=== PATIENT | female | born 1960 | race African-American/Black ===

== ENCOUNTER 2019-06-15 19:44 | Inpatient (IN) ==
[2019-06-15] MEDS ORDERED: hydrALAZINE 20 MG/1 ML VIAL IV STA (20:10)
[2019-06-15] MEDS ORDERED: SODIUM CHLORIDE 0.9% 1,000 ML IV STA (20:16)
[2019-06-15 20:39] LABS: CKMB % 2.8 %
[2019-06-15] MEDS ORDERED: ENOXAPARIN 30 MG/0.3 ML SYRINGE SUBCUT STA (20:59)
[2019-06-15] MEDS ORDERED: ENOXAPARIN 100 MG/ML SYRINGE SUBCUT ONE (21:34)
[2019-06-15] MEDS ORDERED: ONDANSETRON 4 MG/2 ML VIAL IV PRN (21:58)
[2019-06-15] MEDS ORDERED: ACETAMINOPHEN 325 MG TABLET PO PRN (21:58)
[2019-06-15] MEDS ORDERED: ENOXAPARIN 40 MG/0.4 ML SYRINGE SUBCUT SCH (22:00)
[2019-06-15 22:38] LABS: Alanine Aminotransferase 166 U/L (13-56); Albumin 3.4 G/DL (3.4-5.0); Alkaline Phosphatase 55 U/L (45-117); Aspartate Amino Transferase 140 U/L (0-37); Bilirubin,Direct < 0.100 MG/DL (0.0-0.20); Bilirubin,Indirect 0.3 MG/DL (0.0-1.0)
[2019-06-15] MEDS: SODIUM CHLORIDE 0.9% 1,000 ML IV SCH (23:45)
[2019-06-16 02:19] LABS: Basophils % 0.4 % (0.0-0.8); Eosinophils # 0.4 10*3/uL (0.0-0.87); Eosinophils % 6.1 % (0.00-10.9); Hematocrit 31.8 VOL% (35.7-47.0); Hemoglobin 10.2 GM/DL (12.0-16.0); Immature Granulocytes % 0.8 %; Immature Granulocytes Absolute 0.06 #; Lymphocytes # 1.5 10*3/uL (1.4-4.0); Lymphocytes % 20.9 % (21.3-54.2); Mean Corpuscular HGB Conc 32.1 GM/DL (32-36); Mean Corpuscular Volume 87.8 FL (87-102); Mean Platelet Volume 10.4 FL (9.6-12.0); Monocytes % 6.5 % (1.7-12.7); Neutrophils % 65.3 % (38.7-73.9); Platelet Count 359 T/CUMM (130-400); Red Blood Count 3.62 MC/CUMM (3.8-5.5); Red Cell Distribution Width 13.5 % (9.3-17.3); White Blood Count 7.2 T/CUMM (4-12)
[2019-06-16 02:45] LABS: Albumin 2.9 G/DL (3.4-5.0); Bilirubin,Total 0.5 MG/DL (0.2-1.0); Calcium 9.3 MG/DL (8.5-10.1); Osmolality,Calculated 292.8 MOS/KG (273-304); Total Protein 6.6 G/DL (6.4-8.3)
[2019-06-16 03:02] LABS: CKMB % 3.1 %
[2019-06-16] MEDS: POTASSIUM CHLORIDE 20 MEQ TABLET PO PRN ×3 (04:26→09:30)
[2019-06-16] MEDS: SODIUM CHLORIDE 0.9% 1,000 ML IV SCH ×4 (08:12→22:37)
[2019-06-16] MEDS: MULTIVITAMIN (CENTRUM) TABLET PO SCH (09:30)
[2019-06-16] MEDS: PANTOPRAZOLE 40 MG TABLET PO SCH (09:30)
[2019-06-16] MEDS: ASPIRIN EC 81 MG TABLET PO SCH (09:30)
[2019-06-16] MEDS: ENOXAPARIN 40 MG/0.4 ML SYRINGE SUBCUT SCH (09:30)
[2019-06-16 10:37] LABS: Risk Ratio 3.63; VLDL CHOLESTEROL 55.6 MG/DL
[2019-06-16 13:21] LABS: CKMB % 3.1 %; Troponin I 0.043 NG/ML (0.00-0.045)
[2019-06-16 14:58] LABS: Apearance,Urine Slightly Hazy (Clear); Bacteria,Urine Occasional /HPF (Few); Bilirubin,Urine Negative (Negative); Blood, Urine Negative (Negative); Glucose,Urine (UA) Negative (Negative); Hyaline Casts,Urine 1 /LPF (0-3); Ketones,Urine Negative (Negative); Mucus,Urine Occasional /LPF (Occasional); Nitrite,Urine Negative (Negative); Protein,Urine Negative; RBC,Urine 13 /HPF (0-4); Squamous Epithelial Cell,Urine Occasional /HPF (0-10); Urine Color Yellow (Yellow); Urine Specific Gravity 1.015 (1.001-1.035); Urine Urobilinogen < 2.0 EU/DL (0.2-1.0); WBC,Urine 23 /HPF (0-6)
[2019-06-16 15:01] LABS: Barbiturates Screen,Urine Negative (Negative); Benzodiazepines Screen,Urine Negative (Negative); Cannabinoid Screen,Urine Negative (Negative); Opiate Screen,Urine Negative (Negative); Phencyclidine Screen,Urine Negative (Negative)
[2019-06-16 15:21] LABS: Troponin I 0.043 NG/ML (0.00-0.045)
[2019-06-16 18:24] LABS: CKMB % 3.3 %; Troponin I 0.042 NG/ML (0.00-0.045)
[2019-06-16 21:29] LABS: CKMB % 3.2 %; Troponin I 0.039 NG/ML (0.00-0.045)
[2019-06-17] MEDS: SODIUM CHLORIDE 0.9% 1,000 ML IV SCH ×5 (01:19→23:50)
[2019-06-17 01:33] LABS: CKMB % 3.2 %; Troponin I 0.04 NG/ML (0.00-0.045)
[2019-06-17] MEDS: ENOXAPARIN 40 MG/0.4 ML SYRINGE SUBCUT SCH (09:36)
[2019-06-17] MEDS: MULTIVITAMIN (CENTRUM) TABLET PO SCH (09:36)
[2019-06-17] MEDS: PANTOPRAZOLE 40 MG TABLET PO SCH (09:36)
[2019-06-17] MEDS: ASPIRIN EC 81 MG TABLET PO SCH (09:36)
[2019-06-18] MEDS: SODIUM CHLORIDE 0.9% 1,000 ML IV SCH ×4 (02:47→14:05)
[2019-06-18 05:25] LABS: Basophils % 0.6 % (0.0-0.8); Eosinophils # 0.8 10*3/uL (0.0-0.87); Eosinophils % 11.5 % (0.00-10.9); Hematocrit 32.8 VOL% (35.7-47.0); Hemoglobin 10.1 GM/DL (12.0-16.0); Immature Granulocytes % 0.7 %; Immature Granulocytes Absolute 0.05 #; Lymphocytes # 1.1 10*3/uL (1.4-4.0); Lymphocytes % 16.4 % (21.3-54.2); Mean Corpuscular HGB Conc 30.8 GM/DL (32-36); Mean Corpuscular Volume 91.1 FL (87-102); Mean Platelet Volume 10.7 FL (9.6-12.0); Monocytes % 6.5 % (1.7-12.7); Neutrophils % 64.3 % (38.7-73.9); Platelet Count 350 T/CUMM (130-400); Red Cell Distribution Width 13.5 % (9.3-17.3); White Blood Count 6.8 T/CUMM (4-12)
[2019-06-18 05:46] LABS: Calcium 8.6 MG/DL (8.5-10.1); Osmolality,Calculated 287.7 MOS/KG (273-304)
[2019-06-18 05:50] LABS: Eosinophils 13 % (0-10); Lymphocytes 11 % (20-55); Platelet Estimate Adequate; Segmented Neutrophils 68 % (50-85); Total Cells Counted 100
[2019-06-18 05:51] LABS: Hypochromasia 1+; Ovalocytes Slight
[2019-06-18] MEDS: PANTOPRAZOLE 40 MG TABLET PO SCH (08:56)
[2019-06-18] MEDS: MULTIVITAMIN (CENTRUM) TABLET PO SCH (08:57)
[2019-06-18] MEDS: ENOXAPARIN 40 MG/0.4 ML SYRINGE SUBCUT SCH (08:57)
[2019-06-18] MEDS: ASPIRIN EC 81 MG TABLET PO SCH (08:57)
[2019-06-18 11:40] VITALS: BP 184/89
[2019-06-18 11:49] LABS: CKMB % 4.8 %; Troponin I 0.043 NG/ML (0.00-0.045)
== END 2019-06-18 16:18 | disposition home health service (06) | DRG 281 ==
LOC: N.EDINP 19:44 → N.ED 19:44 → N.TELEN 22:51
PROVIDERS: ADMIT Internal Medicine; ATTEND Internal Medicine

== ENCOUNTER 2019-07-09 06:58 | Observation (INO) ==
[2019-07-09] MEDS ORDERED: ONDANSETRON 4 MG/2 ML VIAL IV STA (07:19)
[2019-07-09 07:24] LABS: Basophils % 0.3 % (0.0-0.8); Eosinophils # 0.9 10*3/uL (0.0-0.87); Eosinophils % 10.2 % (0.00-10.9); Hematocrit 34.2 VOL% (35.7-47.0); Hemoglobin 10.8 GM/DL (12.0-16.0); Immature Granulocytes % 0.7 %; Immature Granulocytes Absolute 0.06 #; Lymphocytes % 11.1 % (21.3-54.2); Mean Corpuscular HGB Conc 31.6 GM/DL (32-36); Mean Corpuscular Volume 87.9 FL (87-102); Mean Platelet Volume 10.2 FL (9.6-12.0); Monocytes % 4.5 % (1.7-12.7); Neutrophils % 73.2 % (38.7-73.9); Platelet Count 470 T/CUMM (130-400); Red Blood Count 3.89 MC/CUMM (3.8-5.5); Red Cell Distribution Width 13.8 % (9.3-17.3); White Blood Count 9.1 T/CUMM (4-12)
[2019-07-09 07:38] LABS: Albumin 3.2 G/DL (3.4-5.0); Bilirubin,Total 0.5 MG/DL (0.2-1.0); Calcium 9.5 MG/DL (8.5-10.1); Total Protein 7.5 G/DL (6.4-8.3)
[2019-07-09 08:24] LABS: Apearance,Urine Clear (Clear); Bilirubin,Urine Negative (Negative); Blood, Urine NEGATIVE (Negative); Glucose,Urine (UA) Negative (Negative); Ketones,Urine Negative (Negative); Mucus,Urine Occasional /LPF (Occasional); Nitrite,Urine Negative (Negative); Protein,Urine Negative; RBC,Urine 1 /HPF (0-4); Squamous Epithelial Cell,Urine Few /HPF (0-10); Urine Color Yellow (Yellow); Urine Specific Gravity 1.005 (1.001-1.035); WBC,Urine 7 /HPF (0-6)
[2019-07-09 08:25] LABS: Urine Urobilinogen 0.2 EU/DL (0.2-1.0)
[2019-07-09] MEDS ORDERED: LEVOFLOXACIN INJ 500 MG in PREMIX 1 EACH IV STA (09:22)
[2019-07-09] MEDS ORDERED: ACETAMINOPHEN 325 MG TABLET PO PRN (10:18)
[2019-07-09] MEDS ORDERED: LORATADINE 10 MG TABLET PO PRN (11:02)
[2019-07-09] MEDS: ALBUTEROL 2.5 MG/3 ML NEB RESP TX SCH ×2 (11:59→18:52)
[2019-07-09] MEDS ORDERED: cefTRIAXone 1,000 MG in SYRINGE 1 EACH IV SCH (13:00)
[2019-07-09] MEDS ORDERED: LISINOPRIL/HCTZ 20-12.5 MG TABLET PO SCH (14:00)
[2019-07-09] MEDS ORDERED: AZITHROMYCIN INJ 500 MG in SODIUM CHLORIDE 0.9% 250 ML IV SCH (15:00)
[2019-07-09] MEDS: guaiFENesin/DM ER 600-30 MG TABLET PO SCH (20:58)
[2019-07-09] MEDS: amLODIPine 10 MG TABLET PO SCH (20:58)
[2019-07-09] MEDS ORDERED: ATORVASTATIN 20 MG TABLET PO SCH (21:00)
[2019-07-10] MEDS: ALBUTEROL 2.5 MG/3 ML NEB RESP TX SCH ×2 (00:19→07:00)
[2019-07-10 03:59] LABS: Basophils % 0.3 % (0.0-0.8); Eosinophils % 10.4 % (0.00-10.9); Hematocrit 31.3 VOL% (35.7-47.0); Hemoglobin 9.7 GM/DL (12.0-16.0); Immature Granulocytes Absolute 0.09 #; Lymphocytes # 1.2 10*3/uL (1.4-4.0); Lymphocytes % 12.8 % (21.3-54.2); Mean Corpuscular Volume 90.2 FL (87-102); Mean Platelet Volume 10.3 FL (9.6-12.0); Monocytes % 5.1 % (1.7-12.7); Neutrophils % 70.4 % (38.7-73.9); Platelet Count 414 T/CUMM (130-400); Red Blood Count 3.47 MC/CUMM (3.8-5.5); Red Cell Distribution Width 13.9 % (9.3-17.3); White Blood Count 9.1 T/CUMM (4-12)
[2019-07-10 04:09] LABS: Calcium 9.6 MG/DL (8.5-10.1); Osmolality,Calculated 278.7 MOS/KG (273-304)
[2019-07-10 08:45] VITALS: BP 120/58
[2019-07-10] MEDS ORDERED: MULTIVITAMIN (CENTRUM) TABLET PO SCH (09:00)
[2019-07-10] MEDS ORDERED: ASPIRIN EC 81 MG TABLET PO SCH (09:00)
[2019-07-10] MEDS ORDERED: FUROSEMIDE 40 MG TABLET PO SCH (09:00)
[2019-07-10] MEDS: guaiFENesin/DM ER 600-30 MG TABLET PO SCH (09:53)
[2019-07-10] MEDS: amLODIPine 10 MG TABLET PO SCH (09:53)
[2019-07-10] MEDS ORDERED: LEVOFLOXACIN INJ 750 MG in PREMIX 1 EACH IV SCH (10:30)
== END 2019-07-10 12:50 | disposition home or self-care (01) ==
LOC: EDUNIT# → EDBD → N.ED 06:58 → N.EDINP 06:58 → N.2W 11:51
PROVIDERS: ADMIT Internal Medicine Geriatric Medicine; ATTEND Internal Medicine Geriatric Medicine

== ENCOUNTER 2019-07-13 23:45 | Inpatient (IN) ==
[2019-07-13] MEDS ORDERED: ALBUTEROL/IPRATROPIUM 3 ML NEB RESP TX STA (23:58)
[2019-07-14] MEDS ORDERED: SODIUM CHLORIDE 0.9% 500 ML IV STA (00:01)
[2019-07-14 00:12] LABS: Basophils # 0.1 10*3/uL (0.0-0.2); Basophils % 0.5 % (0.0-0.8); Eosinophils % 10.5 % (0.00-10.9); Hematocrit 33.6 VOL% (35.7-47.0); Hemoglobin 10.6 GM/DL (12.0-16.0); Immature Granulocytes % 0.7 %; Immature Granulocytes Absolute 0.07 #; Lymphocytes # 1.2 10*3/uL (1.4-4.0); Lymphocytes % 12.9 % (21.3-54.2); Mean Corpuscular HGB Conc 31.5 GM/DL (32-36); Mean Corpuscular Volume 88.2 FL (87-102); Monocytes % 5.5 % (1.7-12.7); Neutrophils % 69.9 % (38.7-73.9); Platelet Count 460 T/CUMM (130-400); Red Blood Count 3.81 MC/CUMM (3.8-5.5); White Blood Count 9.4 T/CUMM (4-12)
[2019-07-14 00:20] LABS: INR 0.9; PT Patient Result 10.1 SECS (9.6-12.2)
[2019-07-14 00:47] LABS: Albumin 3.1 G/DL (3.4-5.0); Bilirubin,Total 0.4 MG/DL (0.2-1.0); CKMB % 4.9 %; Calcium 9.4 MG/DL (8.5-10.1); Osmolality,Calculated 275.1 MOS/KG (273-304); Troponin I 0.04 NG/ML (0.00-0.045)
[2019-07-14] MEDS ORDERED: ALBUTEROL 2.5 MG/3 ML NEB RESP TX PRN (02:10)
[2019-07-14] MEDS ORDERED: ONDANSETRON 4 MG/2 ML VIAL IV PRN (02:10)
[2019-07-14] MEDS ORDERED: LORATADINE 10 MG TABLET PO PRN (02:18)
[2019-07-14] MEDS ORDERED: SODIUM CHLORIDE 0.9% 1,000 ML IV SCH (02:30)
[2019-07-14] MEDS: LEVOFLOXACIN INJ 750 MG in PREMIX 1 EACH IV SCH (02:54)
[2019-07-14] MEDS: ALBUTEROL/IPRATROPIUM 3 ML NEB RESP TX SCH ×3 (07:20→19:49)
[2019-07-14 07:40] LABS: Basophils % 0.5 % (0.0-0.8); Eosinophils # 0.9 10*3/uL (0.0-0.87); Eosinophils % 11.1 % (0.00-10.9); Hematocrit 31.7 VOL% (35.7-47.0); Hemoglobin 9.9 GM/DL (12.0-16.0); Immature Granulocytes % 0.9 %; Immature Granulocytes Absolute 0.07 #; Lymphocytes # 1.1 10*3/uL (1.4-4.0); Lymphocytes % 13.3 % (21.3-54.2); Mean Corpuscular HGB Conc 31.2 GM/DL (32-36); Mean Corpuscular Volume 88.5 FL (87-102); Mean Platelet Volume 10.2 FL (9.6-12.0); Neutrophils % 68.2 % (38.7-73.9); Platelet Count 427 T/CUMM (130-400); Red Blood Count 3.58 MC/CUMM (3.8-5.5); White Blood Count 8.2 T/CUMM (4-12)
[2019-07-14 07:59] LABS: Eosinophils 9 % (0-10); Hypochromasia 1+; Lymphocytes 12 % (20-55); Platelet Estimate Adequate; Segmented Neutrophils 77 % (50-85); Total Cells Counted 100
[2019-07-14 08:12] LABS: Albumin 2.8 G/DL (3.4-5.0); Bilirubin,Total 1.1 MG/DL (0.2-1.0); Osmolality,Calculated 277.8 MOS/KG (273-304); Total Protein 7.2 G/DL (6.4-8.3)
[2019-07-14 08:20] LABS: Alanine Aminotransferase 138 U/L (13-56); Albumin 2.8 G/DL (3.4-5.0); Alkaline Phosphatase 58 U/L (45-117); Aspartate Amino Transferase 151 U/L (0-37); Bilirubin,Direct < 0.100 MG/DL (0.0-0.20); Bilirubin,Indirect 0.3 MG/DL (0.0-1.0); Total Protein 7.1 G/DL (6.4-8.3)
[2019-07-14] MEDS: ASPIRIN EC 81 MG TABLET PO SCH (08:28)
[2019-07-14] MEDS: guaiFENesin/DM ER 600-30 MG TABLET PO SCH ×2 (08:28→21:04)
[2019-07-14] MEDS: ENOXAPARIN 40 MG/0.4 ML SYRINGE SUBCUT SCH (08:29)
[2019-07-14] MEDS: FUROSEMIDE 40 MG TABLET PO SCH (08:29)
[2019-07-14] MEDS: MULTIVITAMIN (BEROCCA) TABLET PO SCH (08:29)
[2019-07-14] MEDS: PANTOPRAZOLE 40 MG TABLET PO SCH (08:32)
[2019-07-14] MEDS ORDERED: LORazepam 2 MG/1 ML VIAL IV ONE (12:07)
[2019-07-14] MEDS: LISINOPRIL/HCTZ 20-12.5 MG TABLET PO SCH (15:23)
[2019-07-14] MEDS ORDERED: ATORVASTATIN 20 MG TABLET PO SCH (21:00)
[2019-07-15] MEDS: ALBUTEROL/IPRATROPIUM 3 ML NEB RESP TX SCH ×3 (00:25→13:20)
[2019-07-15 06:35] LABS: Basophils % 0.3 % (0.0-0.8); Eosinophils # 0.9 10*3/uL (0.0-0.87); Eosinophils % 11.9 % (0.00-10.9); Hematocrit 31.8 VOL% (35.7-47.0); Hemoglobin 9.7 GM/DL (12.0-16.0); Immature Granulocytes % 0.7 %; Immature Granulocytes Absolute 0.05 #; Lymphocytes # 1.1 10*3/uL (1.4-4.0); Mean Corpuscular HGB Conc 30.5 GM/DL (32-36); Mean Corpuscular Volume 90.3 FL (87-102); Mean Platelet Volume 10.3 FL (9.6-12.0); Monocytes % 4.9 % (1.7-12.7); Neutrophils % 68.2 % (38.7-73.9); Platelet Count 405 T/CUMM (130-400); Red Blood Count 3.52 MC/CUMM (3.8-5.5); White Blood Count 7.5 T/CUMM (4-12)
[2019-07-15 06:56] LABS: Calcium 9.1 MG/DL (8.5-10.1); Osmolality,Calculated 283.3 MOS/KG (273-304)
[2019-07-15 06:57] LABS: Calcium 9.3 MG/DL (8.5-10.1); Osmolality,Calculated 283.3 MOS/KG (273-304)
[2019-07-15 07:04] LABS: C-Reactive Protein HS Cardiac 2.14 MG/DL (0-0.3)
[2019-07-15 07:06] LABS: Atypical Lymphocytes Few; Eosinophils 12 % (0-10); Lymphocytes 9 % (20-55); Segmented Neutrophils 75 % (50-85); Total Cells Counted 100
[2019-07-15 07:07] LABS: Hypochromasia 1+; Microcytosis 1+
[2019-07-15] MEDS ORDERED: REGADENOSON 0.4 MG/5 ML SYRINGE IV ONE (08:30)
[2019-07-15] MEDS: MULTIVITAMIN (BEROCCA) TABLET PO SCH (10:03)
[2019-07-15] MEDS: guaiFENesin/DM ER 600-30 MG TABLET PO SCH (10:03)
[2019-07-15] MEDS: PANTOPRAZOLE 40 MG TABLET PO SCH (10:03)
[2019-07-15] MEDS: FUROSEMIDE 40 MG TABLET PO SCH (10:03)
[2019-07-15] MEDS: ASPIRIN EC 81 MG TABLET PO SCH (10:03)
[2019-07-15] MEDS: ENOXAPARIN 40 MG/0.4 ML SYRINGE SUBCUT SCH (10:04)
[2019-07-15] MEDS: LEVOFLOXACIN INJ 750 MG in PREMIX 1 EACH IV SCH (10:04)
[2019-07-15 11:43] VITALS: BP 114/50
[2019-07-15] MEDS: LISINOPRIL/HCTZ 20-12.5 MG TABLET PO SCH (14:32)
== END 2019-07-15 17:35 | disposition home health service (06) | DRG 557 ==
LOC: EDBD → EDUNIT# → N.ED 23:45 → N.EDINP 07-14 01:35 → N.2E 07-14 01:50
PROVIDERS: ADMIT Hospitalist; ATTEND Hospitalist